=== PATIENT | female | born 1955 | race Hispanic/Latino ===

== ENCOUNTER 2017-12-08 10:23 | Emergency (ER) | payer MEDICARE ==
--- NOTE | 2017-12-08 11:50 | Emergency Department Report ---
ED CPR HPI - General Chief Complaint: Cardiac Arrest/CPR Stated Complaint: UNRESPONSIVE Time Seen by Provider: 12/08/17 11:45 Source: EMS Mode of arrival: Stretcher Limitations: Other - History of Present Illness Initial Comments: The patient was found unresponsive in a grocery store. Medics state that she has a history of ENT carcinoma. They state that she has also a history of some sort of choking episodes. I spoke to the after she was pronounced. He states that she has had choking episodes before as well. He believes that her ENT cancer was cured with radiation he states. In any case the medics found the patient apneic in asystole. They placed a Combitube and provided standard ACLS protocols without any return of circulation. The patient did not respond to CPR for greater than 25 minutes. MD Complaint: found unresponsive, collapsed during activity (cardiac arrest was witnessed per medics) Place: other (grocery store) Initial Findings in the Field: unresponsive, no pulse, systole (asystole and apneic) ROSC in the Field: No Associated Injuries: No Associated Symptoms: other (possible airway obstruction) Treatments Prior to Arrival: other (as above) - Related Data Home Medications Medication Instructions Recorded Confirmed Last Taken Cetirizine HCl 5 mg PO DAILY 09/23/13 02/18/15 02/17/15 Escitalopram [Lexapro Oral Liqd] 10 mg PO HS 09/23/13 02/17/15 09/22/13 Levothyroxine [Synthroid] 62.5 mcg PO QAM 09/23/13 02/18/15 02/18/15 09:00 Tacrolimus [Prograf] 1 mg PO BID 09/23/13 02/18/15 02/18/15 09:00 Escitalopram [Lexapro] 10 mg PO DAILY 02/17/15 02/18/15 02/17/15 Fluticasone/Salmeterol(Nf) [Advair 2 puff IH BID 02/17/15 02/18/15 02/17/15 HFA 115-21 mcg] Ketorolac Ophth Soln (Nf) [Acular 1 drop OD QID 02/17/15 02/18/15 02/17/15 Ophth Soln 0.5%] prednisoLONE ACETATE 1%(NF) [Pred 1 drops OD QID 02/17/15 02/18/15 02/17/15 Forte] Previous Rx's Medication Instructions Recorded Last Taken Type traMADol [Ultram] 50 mg PO Q4HR PRN #14 tablet 09/23/13 02/17/15 Rx Allergies Allergy/AdvReac Type Severity Reaction Status Date / Time No Known Allergies Allergy Unverified 09/23/13 03:04 ED Review of Systems ROS: Stated complaint: UNRESPONSIVE Other details as noted in HPI Comment: All other systems reviewed and negative ED Past Medical Hx - Past Medical History Hx GERD: Yes Hx Liver Disease: Yes (Chronic Hep C s/p LIVER TRANSPLANT) Hx Asthma: No Hx COPD: Yes (2003; Used Spiriva this am) Additional medical history: Hepatitis B, Liver transplant 2008, Hypothyroid, Hx Throat Cancer (remission) - Surgical History Additional Surgical History: liver transplant - Social History Smoking Status: Former Smoker - Medications Home Medications: Home Medications Medication Instructions Recorded Confirmed Last Taken Type Cetirizine HCl 5 mg PO DAILY 09/23/13 02/18/15 02/17/15 History Escitalopram [Lexapro Oral Liqd] 10 mg PO HS 09/23/13 02/17/15 09/22/13 History Levothyroxine [Synthroid] 62.5 mcg PO QAM 09/23/13 02/18/15 02/18/15 09:00 History Tacrolimus [Prograf] 1 mg PO BID 09/23/13 02/18/15 02/18/15 09:00 History traMADol [Ultram] 50 mg PO Q4HR PRN #14 tablet 09/23/13 02/18/15 02/17/15 Rx Escitalopram [Lexapro] 10 mg PO DAILY 02/17/15 02/18/15 02/17/15 History Fluticasone/Salmeterol(Nf) [Advair 2 puff IH BID 02/17/15 02/18/15 02/17/15 History HFA 115-21 mcg] Ketorolac Ophth Soln (Nf) [Acular 1 drop OD QID 02/17/15 02/18/15 02/17/15 History Ophth Soln 0.5%] prednisoLONE ACETATE 1%(NF) [Pred 1 drops OD QID 02/17/15 02/18/15 02/17/15 History Forte] ED Physical Exam - General Limitations: Other (no signs of life) General appearance: other (GCS is 3) - Head Head exam: Present: atraumatic - Eye Pupils: Present: other (fixed and dilated pupils) - ENT ENT exam: Present: normal exam (grossly) - Respiratory Respiratory exam: Present: other (apnea, some air exchange c ventilation) - Cardiovascular Cardiovascular Exam: Present: other (asystole) - GI/Abdominal GI/Abdominal exam: Present: soft - Neurological Exam Neurological exam: Present: other (NSOL) - Skin Skin exam: Present: warm ED Course - Reevaluation(s) Reevaluation #1: Patient has already experienced 25 minutes of apnea and asystole/PEA. Further resuscitative efforts are deemed futile. There is no signs of life. Patient is pronounced. Family is counseled. 12/08/17 12:11 Critical care attestation.: If time is entered above; I have spent that time in minutes in the direct care of this critically ill patient, excluding procedure time. ED Disposition Clinical Impression: Cardiac arrest Disposition: [id number] Is pt being admited?: No Does the pt Need Aspirin: No Condition: Stable Referrals: PRIMARY CARE, [Primary Care Provider] - 3-5 Days Time of Disposition: 12:13
== END 2017-12-08 13:15 ==
LOC: ED 10:23
DX: I46.9 Cardiac arrest, cause unspecified (principal); K21.9 Gastro-esophageal reflux disease without esophagitis; J40 Bronchitis, not specified as acute or chronic
CPT/HCPCS: 92950